=== PATIENT | female | born 1975 | race Caucasian/White ===

== ENCOUNTER 2016-05-23 17:11 | Emergency (ER) | payer OTHER ==
[~2016-05-23] VITALS: Ht 165.1 cm; Wt 49.1 kg
[~2016-05-23 17:11] MED LIST: BENTYL 10MG10 MG/CAP PO; CONCERTA54 MG PO; CORGARD20 MG PO; ESTRACE 1MG1 MG/TAB PO; LEVSIN 0.10.125 MG/T PO; MIDRIN 325 MG-11 CAP PO; MIGRAINE CAPSUL1 CAP PO; NASONEX SPRAY17 GM NS; PROMETHAZINE12.5 M5 PO; PROMETRIUM100 MG PO; SEROQUEL 2525 MG/TAB PO; TYLENOL 500MG500 MG PO; XANAX .25M0.25 MG/TA PO
[2016-05-23 17:12] VITALS: TEMP 97.8
[2016-05-23 18:40] LABS: BASO # 0.1 (0.0-0.2); BASO % 1.1 % (0.0-2.0); EOS # 0.1 (0.0-0.7); EOS % 2.2 % (0-4.0); GRAN % 52.9 % (42.2-75.2); HEMATOCRIT 38.7 % (37.0-47.0); HEMOGLOBIN 12.9 g/dl (12.5-16.0); LYMPH # 2.1 (1.2-3.4); LYMPH % 37.3 % (20.0-51.0); MEAN CELL VOLUME 90 fl (80.0-100.0); MEAN CORPUSCULAR HEMOGLOBIN 30 pg (27.0-31.0); MEAN CORPUSCULAR HGB CONC 33 g/dl (33.0-37.0); MEAN PLATELET VOLUME 9.4 fl (7.4-10.4); MONO # 0.3 (0.1-0.6); MONO % 6.1 % (1.7-9.3); PLATELET COUNT 213 K/mm3 (130-400); RED BLOOD COUNT 4.28 M/mm3 (4.10-5.30); REDCELL DISTRIBUTION WIDTH-CV 11.8 % (11.5-14.5); WHITE BLOOD COUNT 5.6 K/mm3 (4.8-10.8)
[2016-05-23 18:51] LABS: ADJUSTED CALCIUM 9.2 mg/dL (8.4-10.2); ALBUMIN 4.2 gm/dL (3.5-5.0); BILIRUBIN,TOTAL 0.9 mg/dL (0.0-1.0); CALCIUM 9.4 mg/dL (8.4-10.2); CREATININE, serum 0.65 mg/dL (0.52-1.25); TOTAL PROTEIN 7.1 gm/dL (6.4-8.2)
[2016-05-23 19:34] LABS: PH 5 (5-8); SQUAMOUS EPITHELIAL 0-2 /hpf; URINE APPEARANCE Clear; URINE BACTERIA None Seen /hpf; URINE BILIRUBIN Negative (NEGATIVE); URINE BLOOD Negative (NEGATIVE); URINE COLOR Yellow; URINE GLUCOSE Negative (NEGATIVE); URINE KETONE Trace (NEGATIVE); URINE RBC 0-2 /hpf; URINE UROBILINOGEN Negative (NEGATIVE); URINE WBC 0-2 /hpf
[2016-05-23 19:46] VITALS: BP 96/50; PULSE 73
== END 2016-05-23 19:48 | disposition home or self-care (01) ==
LOC: COL.ER 17:11
PROVIDERS: Family Medicine
DX: G43.909 Migraine, unspecified, not intractable, without status migrainosus (principal); R10.84 Generalized abdominal pain; G89.29 Other chronic pain
CPT/HCPCS: J2550; J7030

== ENCOUNTER 2016-06-02 13:00 | Outpatient (RCR) | payer OTHER ==
[2016-04-28 14:57] VITALS: BP 110/46; PULSE 83; TEMP 98.5
== END 2016-06-05 11:38 | disposition home or self-care (01) ==
LOC: WSPT 13:00
DX: M79.601 Pain in right arm (principal)
CPT/HCPCS: G8985-GP; G8986-GP

== ENCOUNTER 2016-06-23 15:00 | Outpatient (RCR) | payer OTHER ==
[2016-03-31 15:30] VITALS: BP 109/64; PULSE 99; TEMP 98.3
[2016-04-28 15:34] VITALS: BP 110/46; PULSE 83; TEMP 98.5
[2016-05-05 14:49] VITALS: BP 104/64; PULSE 80; TEMP 98
[2016-05-12 15:02] VITALS: BP 96/60; PULSE 79; TEMP 98.8
[2016-05-19 15:12] VITALS: BP 106/60; PULSE 75; TEMP 98.2
[2016-05-26 16:07] VITALS: BP 107/57; PULSE 86; TEMP 98.8
[2016-06-02 15:19] VITALS: BP 108/64; PULSE 81; TEMP 98.3
[2016-06-09 15:23] VITALS: BP 99/60; PULSE 79; TEMP 98.4
[2016-06-16 15:20] VITALS: BP 106/69; PULSE 82; TEMP 98.2
[~2016-06-23] VITALS: Ht 170.2 cm; Wt 49.0 kg
[2016-06-23 15:43] VITALS: BP 107/67; PULSE 91; TEMP 98.4
[2016-06-30] MEDS ORDERED: DEXILANT60 MG PO (11:45)
[2016-06-30] MEDS ORDERED: MAGNESIUM IV (11:46)
== END 2016-06-29 | disposition home or self-care (01) ==
LOC: EUO
DX: G43.809 Other migraine, not intractable, without status migrainosus (principal)
CPT/HCPCS: J3475

== ENCOUNTER 2016-06-30 07:01 | Day surgery (SDC) | payer OTHER ==
[~2016-06-30] VITALS: Ht 170.2 cm; Wt 50.0 kg
[2016-06-30 07:42] VITALS: BP 103/75; PULSE 96; TEMP 97.5
[2016-06-30 09:15] VITALS: BP 103/59; PULSE 79; TEMP 97.8
[2016-06-30 09:30] VITALS: BP 106/61; PULSE 77
[2016-06-30 10:16] VITALS: BP 87/47; PULSE 77
[2016-06-30 10:22] VITALS: BP 92/55; PULSE 80
[2016-06-30] MEDS ORDERED: DEXILANT60 MG PO (11:45)
[2016-06-30] MEDS ORDERED: MAGNESIUM IV (11:46)
== END 2016-06-30 11:15 | disposition home or self-care (01) ==
LOC: SDCO 07:01
DX: K21.9 Gastro-esophageal reflux disease without esophagitis (principal); D72.820 Lymphocytosis (symptomatic); K30 Functional dyspepsia; R19.7 Diarrhea, unspecified; K31.84 Gastroparesis; F41.9 Anxiety disorder, unspecified; F32.9 Major depressive disorder, single episode, unspecified; R11.2 Nausea with vomiting, unspecified; Z87.19 Personal history of other diseases of the digestive system; Z85.51 Personal history of malignant neoplasm of bladder; F17.200 Nicotine dependence, unspecified, uncomplicated
CPT/HCPCS: J2250; J2405; J2550; J3010; J7030

== ENCOUNTER 2016-06-30 11:33 | Emergency (ER) | payer OTHER ==
[~2016-06-30] VITALS: Ht 167.6 cm; Wt 50.0 kg
[2016-06-30 11:36] VITALS: TEMP 97.5
[2016-06-30] MEDS ORDERED: DEXILANT60 MG PO (11:45)
[2016-06-30] MEDS ORDERED: MAGNESIUM IV (11:46)
[2016-06-30 15:12] VITALS: BP 101/62; PULSE 85
== END 2016-06-30 15:12 | disposition home or self-care (01) ==
LOC: COL.ER 11:33
DX: G43.909 Migraine, unspecified, not intractable, without status migrainosus (principal); Z98.890 Other specified postprocedural states
CPT/HCPCS: J1885; J2765; J3475; J7030

== ENCOUNTER 2016-10-06 15:00 | Outpatient (RCR) | payer OTHER ==
[2016-07-14 15:15] VITALS: BP 109/62; PULSE 87; TEMP 98.2
[2016-07-21 16:17] VITALS: BP 103/59; PULSE 77; TEMP 98.3
[2016-07-28 15:44] VITALS: BP 108/69; PULSE 86; TEMP 97.9
[2016-08-04 16:10] VITALS: BP 107/62; PULSE 97; TEMP 98.7
[2016-08-11 15:00] VITALS: BP 111/75; PULSE 80; TEMP 97.9
[2016-08-18 15:04] VITALS: BP 102/58; PULSE 90; TEMP 98.5
[2016-08-25 13:40] VITALS: BP 113/64; PULSE 84; TEMP 98.1
[2016-09-01 15:01] VITALS: BP 110/70; PULSE 94; TEMP 98.7
[2016-09-08 15:02] VITALS: BP 103/63; PULSE 84; TEMP 98.4
[2016-09-15 15:20] VITALS: BP 112/55; PULSE 89; TEMP 98.1
[2016-09-22 14:53] VITALS: BP 100/57; PULSE 90; TEMP 98.3
[2016-09-29 14:40] VITALS: BP 108/65; PULSE 84; TEMP 98.5
[~2016-10-06] VITALS: Ht 170.2 cm; Wt 46.3 kg
[~2016-10-06 15:00] MED LIST changes: +DEXILANT60 MG PO; +MAGNESIUM IV
[2016-10-06 15:03] VITALS: BP 110/63; PULSE 83; TEMP 98.3
== END 2016-10-11 09:03 | disposition home or self-care (01) ==
LOC: EUO 15:00
DX: G43.809 Other migraine, not intractable, without status migrainosus (principal)
CPT/HCPCS: J3475